=== PATIENT | female | born 1975 | race African-American/Black ===

== ENCOUNTER → 2017-12-17 | Outpatient (CLI) | payer OTHER ==
[~2017-12-17] MED LIST: 00186-0370-20 IH; ALLERGY SHOTS; NORCO 325 MG-51 TAB PO; PROAIR HFA0.09 MG/AC IH; RT ADVAIR 128 DISKUS IH; SINGULAIR 110 MG/TAB PO; TRIAMCINOLONE0.5% TP; ZOFRAN 4MG T4 MG/TAB PO; ZYRTEC ALLERGY10 MG PO
== END ==
LOC: COL.RAD 07:30
DX: M75.111 Incomplete rotator cuff tear or rupture of right shoulder, not specified as traumatic (principal)